=== PATIENT | male | born 1950 | race Caucasian/White ===

== ENCOUNTER 2018-08-18 07:24 | Day surgery (SDC) | payer OTHER, MEDICARE ==
[2018-08-11 13:04] VITALS: BMI 32.5
[2018-08-18] MEDS ORDERED: LIDOCAINE HCL/PF 2% SDV 5ML VIAL ONE (08:02)
[2018-08-18] MEDS ORDERED: PROPOFOL 20 ML ONE ×2 (08:03)
[2018-08-18 08:09] VITALS: TEMP 98
[2018-08-18 10:42] VITALS: BP 130/66; PULSE 60
--- NOTE | 2018-08-20 17:57 | PATH ---
Surgical Pathology Report Patient Name: JAIRO HAWKINS [facility]. Rec. #: [id number] /Age/Gender: 1950 (Age: 67) / M Account: [id number] Location: [facility] Taken: 08/18/2018 Received: 08/18/2018 Reported: 08/20/2018 Physicians: Alan Martinez M.D. Specimen(s) Received A: CECUM B: LEFT COLON C: SIGMOID POLYP Clinical History History of polyps Postoperative diagnosis: Polyps Final Diagnosis A. CECAL POLYP, POLYPECTOMY: HYPERPLASTIC POLYP. B. LEFT COLON POLYP, POLYPECTOMY: TUBULAR ADENOMA. C. SIGMOID POLYP, POLYPECTOMY: HYPERPLASTIC POLYP. Electronically Signed Kerrie Powers M.D. Gross Description A. Received in formalin, labeled "cecal polyp" is a patel, irregular portion of soft tissue measuring 0.8 cm. in greatest dimension. The specimen is submitted in toto in one cassette. B. Received in formalin, labeled "biopsy left colon polyp" is a patel, irregular portion of soft tissue measuring 0.5 cm. in greatest dimension. The specimen is submitted in toto in one cassette. C. Received in formalin, labeled "sigmoid polyp" is a patel, irregular portion of soft tissue measuring 0.4 cm. in greatest dimension. The specimen is submitted in toto in one cassette. 08/19/2018 saudi08/19/2018
== END 2018-08-18 10:40 | disposition home or self-care (01) ==
LOC: FASU-ENDO 07:24
PROVIDERS: ATTEND Internal Medicine Gastroenterology
PROC: 0DBN8ZX Excision of Sigmoid Colon, Via Natural or Artificial Opening Endoscopic, Diagnostic (ICD-10-PCS; 2018-08-18)
PROC: 0DBM8ZX Excision of Descending Colon, Via Natural or Artificial Opening Endoscopic, Diagnostic (ICD-10-PCS; 2018-08-18)
PROC: 0DBH8ZX Excision of Cecum, Via Natural or Artificial Opening Endoscopic, Diagnostic (ICD-10-PCS; principal; 2018-08-18 09:00)
DX: Z86.010 Personal history of colon polyps (principal); Z80.0 Family history of malignant neoplasm of digestive organs; D12.4 Benign neoplasm of descending colon; K63.5 Polyp of colon; K57.30 Diverticulosis of large intestine without perforation or abscess without bleeding
CPT/HCPCS: 88305-TC